=== PATIENT | female | born 1970 | race Hispanic/Latino ===

== ENCOUNTER 2025-08-04 05:58 | Day surgery (SDC) | payer BC ==
[2025-08-04] VITALS (18 sets, daily range): BP systolic 109–134; BP diastolic 51–73; PULSE 70–86; RESP 14–18; TEMP 97–97.7
[~2025-08-04] VITALS: Ht 165.1 cm; Wt 71.7 kg
[~2025-08-04 05:58] MED LIST: CHOL500062 PO; MAGNESIUM GLYCINATE PO; PROG100C11 PO; TIRZ10VI SQ; [UNRECOGNIZED DRUG - OTHER] PO
[2025-08-04] MEDS ORDERED: MIDAZOLAM HCL 1 MG/ML 2ML VIAL ONE (06:59)
[2025-08-04] MEDS ORDERED: LIDOCAINE PF 100MG/5ML (2%) SYRINGE 5ML ONE (07:02)
[2025-08-04] MEDS: LACTATED RINGERS 1000ML 1,000 ML IV ONE (07:43)
--- NOTE | 2025-08-04 09:22 | OP ---
Operative Note: DATE OF PROCEDURE: 08/04/25 SURGEON: BRIGHT MCDONALD DPM SENIOR FIRMWARE ENGINEER: Diamond Velasquez ANESTHESIA: General PREOPERATIVE DIAGNOSIS: Hallux valgus left foot POSTOPERATIVE DIAGNOSIS: Same Findings: Hallux valgus was reduced PROCEDURE: Lapidus tarsometatarsal joint arthrodesis ESTIMATED BLOOD LOSS: Minimal INDICATIONS: Hallux valgus was not responding to conservative measures Injectables: 10 cc of 0.5% Marcaine plain Specimen: None Materials: [employer] mini frag set with 2.4 mm cortical screws, locking cortical screws, and 3.5 mm cortical screws and T plate 3-0 Vicryl, 4-0 Vicryl, 4-0 nylon Hemostasis: Pneumonic thigh tourniquet at 275 mm Hg DESCRIPTION OF PROCEDURE: The patient was brought into the operating room and placed on table in a supine position and time-out was called. General anesthesia was induced and pneumonic thigh tourniquet was placed. Patient's left lower extremity was prepped and draped in the usual aseptic manner, exsanguinated utilizing Esmarch bandage and pneumonic thigh tourniquet was inflated at 275 mm Hg. A 2 cm incision was made on the lateral aspect of the 1st metatarsophalangeal joint incision was deepened through the subcutaneous tissue layer care being taken to retract and protect all the vital neurovascular structures. Lateral aspect of the 1st MPJ was exposed and the suspensory ligament and abductor hallucis tendon were released. A separate incision was made at the tarsometatarsal joint dorsally over the 1st ray. Incision was deepened through subcutaneous tissue layer. Medial dorsal cutaneous nerve was retracted medially. Major neurovascular bundle over the deep peroneal nerves were retracted laterally. Linear longitudinal incision was made lateral to the extensor tendon and capsular incision was made longitudinally over the tarsometatarsal joint. Periosteal layer was reflected m edially and laterally to expose the joint. Joint cartilage and subchondral bone were resected from the 1st tarsometatarsal joint and osteotomy was made so that the reduction of the 1st rail result in decreasing the intermetatarsal angle. The 1st tarsometatarsal joint was placed in the anatomical position with decreased intermetatarsal angle and temporary fixated utilizing K-wire. Alignment of the 1st ray was confirmed under fluoroscopy in multiple views. Permanent fixation was achieved utilizing interfragmentary 3.5 mm cortical screw placed in the lag fashion following the standard AO technique. Neutralization locking T plate was then placed dorsal medially with 2.4 mm cortical screw and locking cortical screws. Placement of the internal fixation devices were confirmed under fluoroscopy in multiple views. Alignment was also maintained. The surgical wound was irrigated aggressively utilizing copious amounts of normal sterile saline with a pressure. Capsular layer was reapproximated utilizing 3-0 Vicryl, subcutaneous tissue layer via 4-0 Vicryl and skin via 4-0 nylon. Above injectable was utilized to obtain a local block and the surgical wound was dressed with dry sterile dressing followed by Lucio compression dressing. The patient tolerated the procedure and anesthesia well. BRIGHT MCDONALD DPM Aug 04, 2025 09:22
[2025-08-04] MEDS ORDERED: PROMETHAZINE HCL 25 MG/ML 1ML AMPULE IM PRN (09:30)
--- NOTE | 2025-08-04 10:16 | NUR ---
LEFT FOOT WRAPPED IN ROMEL BANDAGE WITH CAM SHOE IN PLACE. DRESSING DRY AND INTACT. NO ACTIVE BLEEDING OR DRAINAGE NOTED. NO REDNESS OR SWELLING NOTED.
== END 2025-08-04 11:14 | disposition home or self-care (01) ==
LOC: DAH 05:58
PROVIDERS: ATTEND Podiatrist
DX: M20.12 Hallux valgus (acquired), left foot (principal); Z98.890 Other specified postprocedural states
CPT/HCPCS: 28297; 81025; 73630; A4223 ×2; C1713 ×9; A4663; A4649 ×3; J7120; J3010 ×2; J1100; J2270; J2003; J2250; J2704; J2405; J1885; J0665 ×2; J0690 ×2; C1776 ×2; A4930; A4215; A4213; A4222; A4221; A4216; A6450; 76000; J3490